=== PATIENT | male | born 1975 | race Caucasian/White ===

== ENCOUNTER 2017-10-17 19:40 | Emergency (ER) | payer MEDICAID ==
[2017-10-17 19:52] VITALS: BP 124/86
[2017-10-17] MEDS ORDERED: Lidocaine 1% 30 ML SDV INJECT ONE (20:10)
[2017-10-17] MEDS ORDERED: Bupivacaine 0.25% 10 ML SDV INJECT ONE (20:10)
[2017-10-17] MEDS ORDERED: Sulfamethoxazole/Trimethoprim 800-160 MG Tab PO ONE (20:50)
[2017-10-17] MEDS ORDERED: Ketorolac 30 MG/ML SDV IM ONE (20:55)
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
== END 2017-10-17 21:10 | disposition home or self-care (01) ==
LOC: DL.ED 19:40
DX: L02.412 Cutaneous abscess of left axilla (principal); F17.210 Nicotine dependence, cigarettes, uncomplicated
CPT/HCPCS: 10061; 87070; 87077; 87186; 96372; 99283; A9270; J1885